=== PATIENT | female | born 1935 | race African-American/Black ===

== ENCOUNTER 2017-06-12 15:22 | Inpatient (IN) | payer OTHER ==
[~2017-06-12] VITALS: Ht 172.7 cm; Wt 72.8 kg
[2017-06-12 16:59] LABS: HEMATOCRIT 39.4 % (36.0-46.0); HEMOGLOBIN 13.5 G/DL (11.9-15.5); MCH 26.1 PG (29.0-34.0); MCHC 34.3 G/DL (30.0-36.0); MCV 76.1 FL (83-99); PLATELET COUNT 136 K/uL (156-360); RBC DIS.WIDTH-CV 16.4 % (11.8-14.6); RBC DIS.WIDTH-SD 44.5 % (39-53); RED BLOOD COUNT 5.18 M/uL (3.80-5.20); WHITE BLOOD COUNT 4.8 K/uL (4.1-10.2)
[2017-06-12 17:08] LABS: CHLORIDE 105 mEq/L (99-109)
[2017-06-12 17:09] LABS: POTASSIUM 3.2 mEq/L (3.7-5.4); SODIUM 142 mEq/L (136-147)
[2017-06-12 17:10] LABS: GLUCOSE 120 mg/dL (70-99)
[2017-06-12 17:14] LABS: CREATININE 1.4 mg/dL (0.6-1.3)
[2017-06-12 17:15] LABS: GFR ESTIMATE (CALCULATED) 38 mL/min/; UREA NITROGEN (BUN) 27 mg/dL (9-23)
[2017-06-12 20:24] LABS: TROP-I INTERPRETATION NEGATIVE; TROPONIN-I 0.06 ng/mL (0.0-0.30)
[2017-06-12 21:01] LABS: ERTH.SED.RATE 33 MM/HR (0-30)
[2017-06-12] MEDS ORDERED: METHIMAZOLE5 MG PO (22:01)
[2017-06-12] MEDS ORDERED: ATORVASTATIN CA40 MG PO (22:02)
[2017-06-12] MEDS ORDERED: LATANOPROST2.5 ML BOTH EYES (22:02)
[2017-06-12] MEDS ORDERED: METOPROLOL SUC100 MG PO (22:02)
[2017-06-12] MEDS ORDERED: DORZOLAMIDE-TIM10 ML BOTH EYES (22:03)
[2017-06-12] MEDS ORDERED: AMLODIPINE BESYL5 MG PO (22:05)
[2017-06-12] MEDS ORDERED: LO-DOSE ASPIRIN81 M2 PO (22:05)
[2017-06-13 02:30] VITALS: BP 170/83
[2017-06-13 05:43] LABS: TROP-I INTERPRETATION NEGATIVE; TROPONIN-I 0.08 ng/mL (0.0-0.30)
[2017-06-13 06:00] LABS: APPEARANCE CLEAR ((CLEAR)); BILIRUBIN NEGATIVE; BLOOD MODERATE; COLOR YELLOW ((YELLOW)); GLUCOSE (STRIP) NEGATIVE; KETONES NEGATIVE; LEUKOCYTES MODERATE; NITRITE NEGATIVE; PROTEIN (STRIP) 100
[2017-06-13 06:53] LABS: SPECIFIC GRAVITY 1.058 (1.000-1.030)
[2017-06-13 07:26] LABS: BACTERIA RARE /HPF; EPITHELIAL CELLS RARE /HPF; MUCUS TRACE /LPF; RED BLOOD CELLS 40-50 /HPF (0-5); WHITE BLOOD CELLS 15-20 /HPF (0-5)
[2017-06-13 07:43] VITALS: BP 134/84
[2017-06-13 09:25] LABS: CHLORIDE 108 MEQ/L (99-109); GFR ESTIMATE (CALCULATED) > 59 mL/min/; GLUCOSE 96 mg/dL (70-99); POTASSIUM 3.2 MEQ/L (3.7-5.4); SODIUM 145 MEQ/L (136-147); UREA NITROGEN (BUN) 26 mg/dL (9-23)
[2017-06-13 09:56] LABS: THYROTROPIN (TSH) 0.45 MIU/L (0.4-5.5)
[2017-06-13 11:24] LABS: MAGNESIUM 1.9 mg/dl (1.3-2.7)
[2017-06-13 11:26] VITALS: BP 144/85
[2017-06-13 13:17] LABS: TROP-I INTERPRETATION NEGATIVE; TROPONIN-I 0.07 ng/mL (0.0-0.30)
[2017-06-13 17:30] VITALS: BP 137/77
[2017-06-13 19:00] VITALS: BP 153/75
[2017-06-13 23:00] VITALS: BP 145/82
[2017-06-14 04:30] VITALS: BP 130/59
[2017-06-14 05:22] LABS: CHLORIDE 107 mEq/L (99-109); POTASSIUM 3.4 mEq/L (3.7-5.4); SODIUM 143 mEq/L (136-147)
[2017-06-14 05:23] LABS: GLUCOSE 115 mg/dL (70-99)
[2017-06-14 05:27] LABS: CREATININE 0.8 mg/dL (0.6-1.3); GFR ESTIMATE (CALCULATED) > 59 mL/min/
[2017-06-14 05:28] LABS: UREA NITROGEN (BUN) 25 mg/dL (9-23)
[2017-06-14 07:38] VITALS: BP 141/95
[2017-06-14 11:16] VITALS: BP 146/71
[2017-06-14 15:35] VITALS: BP 171/72
[2017-06-14 20:23] VITALS: BP 182/77
[2017-06-15 00:09] VITALS: BP 138/83
[2017-06-15 04:15] VITALS: BP 137/88
[2017-06-15 06:30] LABS: CHLORIDE 108 MEQ/L (99-109); CREATININE 0.8 MG/DL (0.6-1.3); GFR ESTIMATE (CALCULATED) > 59 mL/min/; GLUCOSE 102 mg/dL (70-99); POTASSIUM 3.7 MEQ/L (3.7-5.4); SODIUM 144 MEQ/L (136-147); UREA NITROGEN (BUN) 23 mg/dL (9-23)
[2017-06-15 07:45] VITALS: BP 152/79
[2017-06-15] MEDS ORDERED: ELIQUIS5 MG PO (11:37)
[2017-06-15] MEDS ORDERED: TOPROL XL50 MG PO (11:37)
[2017-06-15] MEDS ORDERED: CEFDINIR300 MG PO (11:37)
[2017-06-15] MEDS ORDERED: MUCINEX600 MG PO (11:37)
[2017-06-15] MEDS ORDERED: BENZONATATE100 MG PO (11:37)
[2017-06-15 11:49] VITALS: BP 137/88
[2017-06-15 16:24] VITALS: BP 137/88
== END 2017-06-15 16:26 | disposition home health service (06) | DRG 308 ==
LOC: EME 15:22 → 5SOUTH 23:48 → EDOF 23:48 → ENRESERV 23:49 → 4EAST 06-13 02:28 → ENRESERV 06-14 08:47 → 5SOUTH 06-14 11:08 → ENPENDDIS 06-15 11:40 → 5SOUTH 06-15 16:26
PROVIDERS: Hospitalist; Internal Medicine; Physician Assistant
DX: I48.0 Paroxysmal atrial fibrillation (principal); I48.92 Unspecified atrial flutter; J20.9 Acute bronchitis, unspecified; I50.23 Acute on chronic systolic (congestive) heart failure; E87.6 Hypokalemia; I10 Essential (primary) hypertension; E05.90 Thyrotoxicosis, unspecified without thyrotoxic crisis or storm; E78.5 Hyperlipidemia, unspecified; H40.9 Unspecified glaucoma; I51.7 Cardiomegaly; E78.00 Pure hypercholesterolemia, unspecified; J32.9 Chronic sinusitis, unspecified; N28.9 Disorder of kidney and ureter, unspecified; Z82.49 Family history of ischemic heart disease and other diseases of the circulatory system
CPT/HCPCS: 71046; 71275; 80048; 80048 91; 81003; 83735; 83880; 84439; 84443; 84484; 85027; 85652; 87086; 93005; 93306; 94640; 94640 76; 99202; 99281; 99285; J0696; J1644; J1940; J7030